=== PATIENT | male | born 2000 | race Caucasian/White ===

== ENCOUNTER 2022-02-02 01:21 | Emergency (ER) | payer OTHER ==
[2022-02-02 02:43] VITALS: BMI 25.8
[2022-02-02 06:12] VITALS: BP 118/77; PULSE 79; TEMP 98.2
== END 2022-02-02 06:57 | disposition home or self-care (01) ==
LOC: JER 01:21
DX: F10.920 Alcohol use, unspecified with intoxication, uncomplicated (principal)
CPT/HCPCS: 99281-25

== ENCOUNTER 2022-06-30 20:16 | Emergency (ER) | payer OTHER ==
[2022-06-30 20:32] VITALS: BP 131/80; PULSE 108; RESP 18; TEMP 98.6; BMI 25.1
[2022-06-30] MEDS ORDERED: clonazePAM 0.5 MG TABLET PO ONE (23:33)
[2022-06-30] MEDS ORDERED: clonazePAM 0.5 MG TABLET ONE (23:37)
== END 2022-07-01 00:01 | disposition home or self-care (01) ==
LOC: JER 20:16
DX: R05.9 Cough, unspecified (principal)
CPT/HCPCS: 71046-TC-FY; 93005; 93010; 99291

== ENCOUNTER 2022-12-04 03:54 | Inpatient (IN) | payer OTHER ==
[2022-12-04 04:42] VITALS: BMI 23.6
[2022-12-04] MEDS ORDERED: NALOXONE HCL 0.4 MG/ML VIAL IM PRN (05:15)
[2022-12-04] MEDS ORDERED: BENZONATATE 200 MG CAPSULE PO PRN (05:15)
[2022-12-04] MEDS ORDERED: IBUPROFEN 600 MG TABLET (FP) PO PRN (05:15)
[2022-12-04] MEDS ORDERED: NALOXONE HCL (KLOXXADO) 8 MG SPRAY NS PRN (05:15)
[2022-12-04] MEDS ORDERED: ONDANSETRON *ODT* 4 MG TABLET SL PRN (05:15)
[2022-12-04] MEDS ORDERED: BENZOCAINE/MENTHOL (CHLORASEPTIC ) LOZENGE MM PRN (05:15)
[2022-12-04] MEDS ORDERED: BISMUTH SUBSALICYLATE 524 MG/30 ML PO PRN (05:15)
[2022-12-04] MEDS ORDERED: guaiFENesin 600 MG TABLET.ER (FP) PO PRN (05:15)
[2022-12-04] MEDS ORDERED: ACETAMINOPHEN 325 MG TABLET (FP) PO PRN (05:15)
[2022-12-04] MEDS ORDERED: DICYCLOMINE HCL 10 MG CAPSULE PO PRN (05:15)
[2022-12-04] MEDS ORDERED: MAG HYDROX/AL HYDROX/SIMETH 30 ML UNIT-DOSE CUP PO PRN (05:15)
[2022-12-04] MEDS ORDERED: POLYETHYLENE GLYCOL (HEALTHYLAX) 3350 17 GM PACKET PO PRN (05:15)
[2022-12-04] MEDS ORDERED: IBUPROFEN 400 MG TABLET (FP) PO PRN (05:15)
[2022-12-04] MEDS ORDERED: MAGNESIUM HYDROX 2400MG/30ML ORAL SUSPENSION 30 ML CUP PO PRN (05:15)
[2022-12-04] MEDS ORDERED: LOPERAMIDE HCL 2 MG CAPSULE PO PRN (05:15)
[2022-12-04] MEDS ORDERED: NICOTINE POLACRILEX 2 MG GUM BUC PRN (05:15)
[2022-12-04] MEDS ORDERED: IBUPROFEN 400 MG TABLET (FP) PO ONE (05:37)
[2022-12-04] MEDS: METHOCARBAMOL 500 MG TABLET PO PRN ×2 (10:32→22:50)
[2022-12-04] MEDS: PRENATAL VITAMINS W/ FOLIC ACID TABLET (FP) PO SCH (10:32)
[2022-12-04] MEDS: hydrOXYzine PAMOATE 25 MG CAPSULE (FP) PO PRN ×2 (10:32→22:50)
[2022-12-04] MEDS: BACITRACIN ZINC 15 GM TUBE TOPICAL OINTMENT TP SCH (10:32)
[2022-12-04] MEDS: NICOTINE 21 MG/24 HOURS TOPICAL PATCH TD SCH (10:33)
[2022-12-04 10:50] LABS: BLOOD UREA NITROGEN 9.7 mg/dL (7-18)
[2022-12-04 10:53] LABS: CREATININE 0.9 mg/dL (0.55-1.3)
[2022-12-04 10:55] LABS: BILIRUBIN,TOTAL 0.8 mg/dL (0.2-1); TOT PROT 6.6 g/dl (6.4-8.2)
[2022-12-04 10:59] LABS: HEMOGLOBIN 13.5 GM/dL (11.7-16.9); MCH 29.7 pg (25.7-33.7); MCHC 34.7 g/dl (32.0-35.9); MEAN CELL VOLUME 85.6 fl (80-96); MEAN PLT VOLUME 10.3 fl (7.5-11.1); PLATELET COUNT 196 10^3/uL (134-434); RBC 4.56 M/mm3 (4.00-5.60); RDW 13.4 % (11.9-15.9); WHITE BLOOD COUNT 11.4 K/mm3 (4.0-10.0)
[2022-12-04] MEDS: MELATONIN 5 MG TABLETS PO SCH (22:50)
[2022-12-04] MEDS: THIAMINE HCL 100 MG TABLET (FP) PO SCH (22:50)
[2022-12-05] MEDS: BACITRACIN ZINC 15 GM TUBE TOPICAL OINTMENT TP SCH (10:05)
[2022-12-05] MEDS: PRENATAL VITAMINS W/ FOLIC ACID TABLET (FP) PO SCH (10:05)
[2022-12-05] MEDS: NICOTINE 21 MG/24 HOURS TOPICAL PATCH TD SCH (10:05)
[2022-12-05] MEDS: MELATONIN 5 MG TABLETS PO SCH (22:13)
[2022-12-05] MEDS: THIAMINE HCL 100 MG TABLET (FP) PO SCH (22:13)
[2022-12-05] MEDS: hydrOXYzine PAMOATE 25 MG CAPSULE (FP) PO PRN (22:14)
[2022-12-05] MEDS: METHOCARBAMOL 500 MG TABLET PO PRN (22:14)
[2022-12-06] MEDS: hydrOXYzine PAMOATE 25 MG CAPSULE (FP) PO PRN ×2 (10:52→22:47)
[2022-12-06] MEDS: METHOCARBAMOL 500 MG TABLET PO PRN ×2 (10:52→17:22)
[2022-12-06] MEDS: diazePAM 5 MG TABLET PO SCH ×3 (10:52→22:45)
[2022-12-06] MEDS: PRENATAL VITAMINS W/ FOLIC ACID TABLET (FP) PO SCH (10:52)
[2022-12-06] MEDS: NICOTINE 21 MG/24 HOURS TOPICAL PATCH TD SCH (10:54)
[2022-12-06] MEDS: BACITRACIN ZINC 15 GM TUBE TOPICAL OINTMENT TP SCH (11:21)
[2022-12-06] MEDS: THIAMINE HCL 100 MG TABLET (FP) PO SCH (22:45)
[2022-12-06] MEDS: MELATONIN 5 MG TABLETS PO SCH (22:47)
[2022-12-07] MEDS: diazePAM 5 MG TABLET PO SCH ×4 (05:58→22:01)
[2022-12-07] MEDS: hydrOXYzine PAMOATE 25 MG CAPSULE (FP) PO PRN ×3 (06:00→22:05)
[2022-12-07] MEDS: METHOCARBAMOL 500 MG TABLET PO PRN ×2 (06:00→13:55)
[2022-12-07] MEDS: NICOTINE 21 MG/24 HOURS TOPICAL PATCH TD SCH (11:30)
[2022-12-07] MEDS: PRENATAL VITAMINS W/ FOLIC ACID TABLET (FP) PO SCH (11:30)
[2022-12-07] MEDS: BACITRACIN 0.9 GM PACKET TP SCH (11:34)
[2022-12-07] MEDS: SERTRALINE HCL 50 MG TABLET (FP) PO SCH (15:07)
[2022-12-07] MEDS: THIAMINE HCL 100 MG TABLET (FP) PO SCH (22:01)
[2022-12-07] MEDS: SUVOREXANT 10 MG TABLET PO PRN (22:04)
[2022-12-08] MEDS: diazePAM 5 MG TABLET PO SCH ×3 (06:14→21:53)
[2022-12-08] MEDS: BACITRACIN 0.9 GM PACKET TP SCH (11:01)
[2022-12-08] MEDS: NICOTINE 21 MG/24 HOURS TOPICAL PATCH TD SCH (11:01)
[2022-12-08] MEDS: PRENATAL VITAMINS W/ FOLIC ACID TABLET (FP) PO SCH (11:01)
[2022-12-08] MEDS: SERTRALINE HCL 50 MG TABLET (FP) PO SCH (11:01)
[2022-12-08] MEDS: METHOCARBAMOL 500 MG TABLET PO PRN ×2 (13:28→21:53)
[2022-12-08] MEDS ORDERED: TRIMETHOBENZAMIDE HCL 200MG/2ML INJ IM ONE ×2 (14:23→19:56)
[2022-12-08] MEDS ORDERED: ACETAMINOPHEN 325 MG TABLET (FP) PO ONE (20:07)
[2022-12-08] MEDS: hydrOXYzine PAMOATE 25 MG CAPSULE (FP) PO PRN (21:53)
[2022-12-08] MEDS: SUVOREXANT 10 MG TABLET PO PRN (21:55)
[2022-12-08] MEDS: THIAMINE HCL 100 MG TABLET (FP) PO SCH (21:55)
[2022-12-09] MEDS: diazePAM 5 MG TABLET PO SCH ×2 (06:31→17:18)
[2022-12-09] MEDS: BACITRACIN 0.9 GM PACKET TP SCH (10:42)
[2022-12-09] MEDS: PRENATAL VITAMINS W/ FOLIC ACID TABLET (FP) PO SCH (10:42)
[2022-12-09] MEDS: NICOTINE 21 MG/24 HOURS TOPICAL PATCH TD SCH (10:42)
[2022-12-09] MEDS: SERTRALINE HCL 50 MG TABLET (FP) PO SCH (10:43)
[2022-12-09] MEDS: METHOCARBAMOL 500 MG TABLET PO PRN (17:20)
[2022-12-09] MEDS: hydrOXYzine PAMOATE 25 MG CAPSULE (FP) PO PRN (17:20)
[2022-12-09 19:03] VITALS: BP 147/75; PULSE 109; RESP 16; TEMP 97.7
[2022-12-10] MEDS ORDERED: diazePAM 5 MG TABLET PO ONE (06:00)
== END 2022-12-09 17:20 | disposition home or self-care (01) | DRG 774 ==
LOC: YASAS 03:54 → Y6N 05:38 → UNDOADMIN 05:38
PROVIDERS: ADMIT Allergy & Immunology; ATTEND Surgery
PROC: HZ2ZZZZ Detoxification Services for Substance Abuse Treatment (ICD-10-PCS; principal; 2022-12-04)
DX: F10.230 Alcohol dependence with withdrawal, uncomplicated (principal); F14.20 Cocaine dependence, uncomplicated; F17.210 Nicotine dependence, cigarettes, uncomplicated; F19.282 Other psychoactive substance dependence with psychoactive substance-induced sleep disorder; F19.280 Other psychoactive substance dependence with psychoactive substance-induced anxiety disorder; F19.24 Other psychoactive substance dependence with psychoactive substance-induced mood disorder; F41.9 Anxiety disorder, unspecified; R03.0 Elevated blood-pressure reading, without diagnosis of hypertension; R63.8 Other symptoms and signs concerning food and fluid intake; Z62.810 Personal history of physical and sexual abuse in childhood
CPT/HCPCS: 36415; 80053; 85027; 86780; C9803-CS; Q0162; U0003; U0005

== ENCOUNTER 2022-12-18 16:44 | Emergency (ER) | payer OTHER ==
[2022-12-18 16:58] VITALS: BP 120/73; PULSE 95; RESP 18; TEMP 97.5; BMI 23.6
== END 2022-12-18 20:07 | disposition home or self-care (01) ==
LOC: JER 16:44
DX: F19.10 Other psychoactive substance abuse, uncomplicated (principal)
CPT/HCPCS: 99282-25

== ENCOUNTER 2022-12-20 09:50 | Inpatient (IN) | payer OTHER ==
[2022-12-20 10:09] VITALS: BMI 23.6
[2022-12-20] MEDS ORDERED: BENZONATATE 200 MG CAPSULE PO PRN (10:49)
[2022-12-20] MEDS ORDERED: MAG HYDROX/AL HYDROX/SIMETH 30 ML UNIT-DOSE CUP PO PRN (10:49)
[2022-12-20] MEDS ORDERED: IBUPROFEN 400 MG TABLET (FP) PO PRN (10:49)
[2022-12-20] MEDS ORDERED: LOPERAMIDE HCL 2 MG CAPSULE PO PRN (10:49)
[2022-12-20] MEDS ORDERED: ACETAMINOPHEN 325 MG TABLET (FP) PO PRN (10:49)
[2022-12-20] MEDS ORDERED: POLYETHYLENE GLYCOL (HEALTHYLAX) 3350 17 GM PACKET PO PRN (10:49)
[2022-12-20] MEDS ORDERED: MAGNESIUM HYDROX 2400MG/30ML ORAL SUSPENSION 30 ML CUP PO PRN (10:49)
[2022-12-20] MEDS ORDERED: BENZOCAINE/MENTHOL (CHLORASEPTIC ) LOZENGE MM PRN (10:49)
[2022-12-20] MEDS ORDERED: BISMUTH SUBSALICYLATE 262 MG/15 ML BTL PO PRN (10:49)
[2022-12-20] MEDS ORDERED: hydrOXYzine PAMOATE 25 MG CAPSULE (FP) PO PRN (10:49)
[2022-12-20] MEDS ORDERED: ONDANSETRON *ODT* 4 MG TABLET SL PRN (10:49)
[2022-12-20] MEDS ORDERED: NICOTINE 21 MG/24 HOURS TOPICAL PATCH TD PRN (10:49)
[2022-12-20] MEDS ORDERED: NICOTINE POLACRILEX 4 MG GUM BUC PRN (10:49)
[2022-12-20] MEDS ORDERED: NICOTINE 10 MG CARTRIDGE (INHALER) IH PRN (10:49)
[2022-12-20] MEDS ORDERED: DICYCLOMINE HCL 10 MG CAPSULE PO PRN (10:49)
[2022-12-20] MEDS ORDERED: guaiFENesin 600 MG TABLET.ER (FP) PO PRN (10:49)
[2022-12-20] MEDS: METHOCARBAMOL 500 MG TABLET PO PRN ×2 (14:00→22:32)
[2022-12-20] MEDS: IBUPROFEN 600 MG TABLET (FP) PO PRN (14:00)
[2022-12-20 14:59] LABS: HEMATOCRIT 38.9 % (35.4-49); MCH 29.2 pg (25.7-33.7); MCHC 33.5 g/dl (32.0-35.9); MEAN CELL VOLUME 87.2 fl (80-96); MEAN PLT VOLUME 10.1 fl (7.5-11.1); PLATELET COUNT 220 10^3/uL (134-434); RBC 4.46 M/mm3 (4.00-5.60); RDW 13.8 % (11.9-15.9); WHITE BLOOD COUNT 9.2 K/mm3 (4.0-10.0)
[2022-12-20 15:05] LABS: CALCIUM 8.7 mg/dL (8.5-10.1)
[2022-12-20 15:06] LABS: ALBUMIN 3.3 g/dl (3.4-5.0); BLOOD UREA NITROGEN 12.7 mg/dL (7-18)
[2022-12-20 15:09] LABS: CREATININE 0.8 mg/dL (0.55-1.3)
[2022-12-20 15:10] LABS: BILIRUBIN,TOTAL 0.4 mg/dL (0.2-1)
[2022-12-20] MEDS ORDERED: THIAMINE HCL 100 MG TABLET (FP) PO SCH (22:00)
[2022-12-20] MEDS ORDERED: MELATONIN 5 MG TABLETS PO SCH (22:00)
[2022-12-21 05:57] VITALS: BP 104/53; PULSE 66; RESP 16; TEMP 96.8
[2022-12-21] MEDS ORDERED: hydrOXYzine PAMOATE 25 MG CAPSULE (FP) PO PRN (09:33)
[2022-12-21] MEDS ORDERED: PRENATAL VITAMINS W/ FOLIC ACID TABLET (FP) PO SCH (10:00)
[2022-12-21] MEDS: METHOCARBAMOL 500 MG TABLET PO PRN (10:17)
[2022-12-21] MEDS: IBUPROFEN 600 MG TABLET (FP) PO PRN (10:18)
[2022-12-21] MEDS ORDERED: SUVOREXANT 10 MG TABLET PO PRN (22:00)
== END 2022-12-21 12:12 | disposition other institution (70) | DRG 774 ==
LOC: YASAS 09:50 → Y6N 11:03
PROVIDERS: ADMIT Allergy & Immunology; ATTEND Surgery
PROC: HZ2ZZZZ Detoxification Services for Substance Abuse Treatment (ICD-10-PCS; principal; 2022-12-20)
DX: F14.20 Cocaine dependence, uncomplicated (principal); F15.20 Other stimulant dependence, uncomplicated; F16.20 Hallucinogen dependence, uncomplicated; F12.20 Cannabis dependence, uncomplicated; F17.213 Nicotine dependence, cigarettes, with withdrawal; F19.280 Other psychoactive substance dependence with psychoactive substance-induced anxiety disorder; F19.282 Other psychoactive substance dependence with psychoactive substance-induced sleep disorder; F19.24 Other psychoactive substance dependence with psychoactive substance-induced mood disorder; F41.9 Anxiety disorder, unspecified; F41.1 Generalized anxiety disorder; Z62.810 Personal history of physical and sexual abuse in childhood; Z88.0 Allergy status to penicillin
CPT/HCPCS: 36415; 80053; 85027; 86780; C9803-CS; U0003; U0005

== ENCOUNTER 2022-12-21 12:21 | Inpatient (IN) | payer OTHER ==
[2022-12-21] MEDS ORDERED: ACETAMINOPHEN 325 MG TABLET (FP) PO PRN (13:30)
[2022-12-21] MEDS ORDERED: LOPERAMIDE HCL 2 MG CAPSULE PO PRN (13:30)
[2022-12-21] MEDS ORDERED: IBUPROFEN 600 MG TABLET (FP) PO PRN (13:30)
[2022-12-21] MEDS ORDERED: NALOXONE HCL (KLOXXADO) 8 MG SPRAY NS PRN (13:30)
[2022-12-21] MEDS ORDERED: hydrOXYzine PAMOATE 25 MG CAPSULE (FP) PO PRN (13:30)
[2022-12-21] MEDS ORDERED: NICOTINE 10 MG CARTRIDGE (INHALER) IH PRN (13:30)
[2022-12-21] MEDS ORDERED: NALOXONE HCL 0.4 MG/ML VIAL IVPUSH PRN (13:30)
[2022-12-21] MEDS ORDERED: BENZONATATE 200 MG CAPSULE PO PRN (13:30)
[2022-12-21] MEDS ORDERED: IBUPROFEN 400 MG TABLET (FP) PO PRN (13:30)
[2022-12-21] MEDS ORDERED: MAGNESIUM HYDROX 2400MG/30ML ORAL SUSPENSION 30 ML CUP PO PRN (13:30)
[2022-12-21] MEDS ORDERED: POLYETHYLENE GLYCOL (HEALTHYLAX) 3350 17 GM PACKET PO PRN (13:30)
[2022-12-21] MEDS ORDERED: guaiFENesin 600 MG TABLET.ER (FP) PO PRN (13:30)
[2022-12-21] MEDS ORDERED: MAG HYDROX/AL HYDROX/SIMETH 30 ML UNIT-DOSE CUP PO PRN (13:30)
[2022-12-21] MEDS ORDERED: BENZOCAINE/MENTHOL (CHLORASEPTIC ) LOZENGE MM PRN (13:30)
[2022-12-21] MEDS: METHOCARBAMOL 500 MG TABLET PO PRN (21:39)
[2022-12-21] MEDS: THIAMINE HCL 100 MG TABLET (FP) PO SCH (21:39)
[2022-12-21] MEDS: hydrOXYzine PAMOATE 25 MG CAPSULE (FP) PO PRN (21:39)
[2022-12-21] MEDS ORDERED: SUVOREXANT 10 MG TABLET PO PRN (22:00)
[2022-12-21] MEDS ORDERED: MELATONIN 5 MG TABLETS PO SCH (22:00)
[2022-12-22] MEDS: PRENATAL VITAMINS W/ FOLIC ACID TABLET (FP) PO SCH (09:33)
[2022-12-22] MEDS: NICOTINE 21 MG/24 HOURS TOPICAL PATCH TD SCH (09:33)
[2022-12-22] MEDS: METHOCARBAMOL 500 MG TABLET PO PRN ×2 (13:58→21:23)
[2022-12-22] MEDS: hydrOXYzine PAMOATE 25 MG CAPSULE (FP) PO PRN ×2 (13:58→21:23)
[2022-12-22] MEDS ORDERED: QUEtiapine FUMARATE 25 MG TABLET PO ONE (14:30)
[2022-12-22] MEDS ORDERED: MELATONIN 5 MG TABLETS PO PRN (17:11)
[2022-12-22] MEDS: MELATONIN 5 MG TABLETS PO PRN (21:22)
[2022-12-22] MEDS: THIAMINE HCL 100 MG TABLET (FP) PO SCH (21:22)
[2022-12-22] MEDS ORDERED: QUEtiapine FUMARATE 50 MG TABLET PO PRN (22:00)
[2022-12-23 07:45] VITALS: TEMP 97.9
[2022-12-23] MEDS: NICOTINE 21 MG/24 HOURS TOPICAL PATCH TD SCH (10:55)
[2022-12-23] MEDS: PRENATAL VITAMINS W/ FOLIC ACID TABLET (FP) PO SCH (10:55)
[2022-12-23] MEDS: METHOCARBAMOL 500 MG TABLET PO PRN ×2 (13:01→21:24)
[2022-12-23] MEDS: hydrOXYzine PAMOATE 25 MG CAPSULE (FP) PO PRN (13:01)
[2022-12-23] MEDS ORDERED: hydrOXYzine PAMOATE 50 MG CAPSULE (FP) PO PRN (16:24)
[2022-12-23] MEDS ORDERED: QUEtiapine FUMARATE 25 MG TABLET PO ONE (16:27)
[2022-12-23] MEDS: hydrOXYzine PAMOATE 50 MG CAPSULE (FP) PO PRN (17:05)
[2022-12-23] MEDS: THIAMINE HCL 100 MG TABLET (FP) PO SCH (21:23)
[2022-12-23] MEDS: MELATONIN 5 MG TABLETS PO PRN (21:23)
[2022-12-23] MEDS: busPIRone HCL 10 MG TABLET (FP) PO SCH (21:24)
[2022-12-23] MEDS ORDERED: QUEtiapine FUMARATE 100 MG TABLET (FP) PO PRN (22:00)
[2022-12-24] MEDS: busPIRone HCL 10 MG TABLET (FP) PO SCH (06:40)
[2022-12-24 07:01] VITALS: BP 118/66; PULSE 75; RESP 17
[2022-12-24] MEDS: PRENATAL VITAMINS W/ FOLIC ACID TABLET (FP) PO SCH (09:24)
[2022-12-24] MEDS: NICOTINE 21 MG/24 HOURS TOPICAL PATCH TD SCH (09:24)
[2022-12-24] MEDS: hydrOXYzine PAMOATE 50 MG CAPSULE (FP) PO PRN (09:26)
[2022-12-24] MEDS: METHOCARBAMOL 500 MG TABLET PO PRN (09:26)
[2022-12-24] MEDS ORDERED: QUEtiapine FUMARATE 25 MG TABLET PO SCH (10:00)
== END 2022-12-24 10:18 | disposition left against medical advice (07) | DRG 770 ==
LOC: YASAS 12:21 → Y3E 12:22
PROVIDERS: ADMIT Allergy & Immunology; ATTEND Psychiatry & Neurology Pain Medicine
PROC: HZ42ZZZ Group Counseling for Substance Abuse Treatment, Cognitive-Behavioral (ICD-10-PCS; principal; 2022-12-21)
DX: F10.20 Alcohol dependence, uncomplicated (principal); F13.20 Sedative, hypnotic or anxiolytic dependence, uncomplicated; F14.20 Cocaine dependence, uncomplicated; F12.20 Cannabis dependence, uncomplicated; F17.210 Nicotine dependence, cigarettes, uncomplicated; F19.282 Other psychoactive substance dependence with psychoactive substance-induced sleep disorder; F19.280 Other psychoactive substance dependence with psychoactive substance-induced anxiety disorder; F19.24 Other psychoactive substance dependence with psychoactive substance-induced mood disorder; F41.9 Anxiety disorder, unspecified; Z91.199 Patient's noncompliance with other medical treatment and regimen due to unspecified reason; Z88.0 Allergy status to penicillin
CPT/HCPCS: 36415; 86803

== ENCOUNTER 2023-01-28 01:43 | Inpatient (IN) | payer OTHER ==
[2023-01-28] MEDS ORDERED: POLYETHYLENE GLYCOL (HEALTHYLAX) 3350 17 GM PACKET PO PRN (02:11)
[2023-01-28] MEDS ORDERED: IBUPROFEN 400 MG TABLET (FP) PO PRN (02:11)
[2023-01-28] MEDS ORDERED: NALOXONE HCL 0.4 MG/ML VIAL IM PRN (02:11)
[2023-01-28] MEDS ORDERED: MAG HYDROX/AL HYDROX/SIMETH 30 ML UNIT-DOSE CUP PO PRN (02:11)
[2023-01-28] MEDS ORDERED: NALOXONE HCL (KLOXXADO) 8 MG SPRAY NS PRN (02:11)
[2023-01-28] MEDS ORDERED: BISMUTH SUBSALICYLATE 524 MG/30 ML PO PRN (02:11)
[2023-01-28] MEDS ORDERED: MAGNESIUM HYDROX 2400MG/30ML ORAL SUSPENSION 30 ML CUP PO PRN (02:11)
[2023-01-28] MEDS ORDERED: BENZOCAINE/MENTHOL (CHLORASEPTIC ) LOZENGE MM PRN (02:11)
[2023-01-28] MEDS ORDERED: IBUPROFEN 600 MG TABLET (FP) PO PRN (02:11)
[2023-01-28] MEDS ORDERED: hydrOXYzine PAMOATE 25 MG CAPSULE (FP) PO PRN (02:11)
[2023-01-28] MEDS ORDERED: BENZONATATE 200 MG CAPSULE PO PRN (02:11)
[2023-01-28] MEDS ORDERED: NICOTINE POLACRILEX 2 MG GUM BUC PRN (02:11)
[2023-01-28] MEDS ORDERED: ACETAMINOPHEN 325 MG TABLET (FP) PO PRN (02:11)
[2023-01-28] MEDS ORDERED: LOPERAMIDE HCL 2 MG CAPSULE PO PRN (02:11)
[2023-01-28] MEDS ORDERED: DICYCLOMINE HCL 10 MG CAPSULE PO PRN (02:11)
[2023-01-28] MEDS ORDERED: guaiFENesin 600 MG TABLET.ER (FP) PO PRN (02:11)
[2023-01-28] MEDS ORDERED: ONDANSETRON *ODT* 4 MG TABLET SL PRN (02:11)
[2023-01-28] MEDS ORDERED: METHOCARBAMOL 500 MG TABLET PO PRN (02:11)
[2023-01-28] MEDS ORDERED: hydrOXYzine PAMOATE 50 MG CAPSULE (FP) PO ONE (02:27)
[2023-01-28 02:28] VITALS: BMI 27.3
[2023-01-28 08:48] VITALS: RESP 18
[2023-01-28] MEDS: PRENATAL VITAMINS W/ FOLIC ACID TABLET (FP) PO SCH (10:37)
[2023-01-28] MEDS: NICOTINE 21 MG/24 HOURS TOPICAL PATCH TD SCH (10:37)
[2023-01-28] MEDS ORDERED: QUEtiapine FUMARATE 25 MG TABLET PO STA (15:28)
[2023-01-28] MEDS ORDERED: THIAMINE HCL 100 MG TABLET (FP) PO SCH (22:00)
[2023-01-28] MEDS ORDERED: MELATONIN 5 MG TABLETS PO SCH (22:00)
[2023-01-28] MEDS ORDERED: QUEtiapine FUMARATE 100 MG TABLET (FP) PO SCH (22:00)
[2023-01-29 09:59] VITALS: BP 120/64; PULSE 65; TEMP 97.1
[2023-01-29] MEDS: NICOTINE 21 MG/24 HOURS TOPICAL PATCH TD SCH (11:00)
[2023-01-29] MEDS: PRENATAL VITAMINS W/ FOLIC ACID TABLET (FP) PO SCH (11:01)
== END 2023-01-29 11:26 | disposition other institution (70) | DRG 774 ==
LOC: YASAS 01:43 → Y3N 02:59 → UNDOADMIN 02:59 → UNDODISIN 01-29 11:26
PROVIDERS: ADMIT Allergy & Immunology; ATTEND Surgery
PROC: HZ2ZZZZ Detoxification Services for Substance Abuse Treatment (ICD-10-PCS; principal; 2023-01-28)
DX: F10.20 Alcohol dependence, uncomplicated (principal); F14.20 Cocaine dependence, uncomplicated; F12.20 Cannabis dependence, uncomplicated; F17.210 Nicotine dependence, cigarettes, uncomplicated; F19.282 Other psychoactive substance dependence with psychoactive substance-induced sleep disorder; F19.24 Other psychoactive substance dependence with psychoactive substance-induced mood disorder; Z88.0 Allergy status to penicillin
CPT/HCPCS: C9803-CS; U0003; U0005

== ENCOUNTER 2023-07-20 16:46 | Inpatient (IN) | payer OTHER ==
[2023-07-20 18:02] VITALS: BMI 33.0
[2023-07-20] MEDS ORDERED: IBUPROFEN 600 MG TABLET (FP) PO PRN (19:34)
[2023-07-20] MEDS ORDERED: guaiFENesin 600 MG TABLET.ER (FP) PO PRN (19:34)
[2023-07-20] MEDS ORDERED: LOPERAMIDE HCL 2 MG CAPSULE PO PRN (19:34)
[2023-07-20] MEDS ORDERED: MAG HYDROX/AL HYDROX/SIMETH 30 ML UNIT-DOSE CUP PO PRN (19:34)
[2023-07-20] MEDS ORDERED: NALOXONE HCL (KLOXXADO) 8 MG SPRAY NS PRN (19:34)
[2023-07-20] MEDS ORDERED: BENZONATATE 200 MG CAPSULE PO PRN (19:34)
[2023-07-20] MEDS ORDERED: BENZOCAINE/MENTHOL (CHLORASEPTIC ) LOZENGE MM PRN (19:34)
[2023-07-20] MEDS ORDERED: MAGNESIUM HYDROX 2400MG/30ML ORAL SUSPENSION 30 ML CUP PO PRN (19:34)
[2023-07-20] MEDS ORDERED: POLYETHYLENE GLYCOL (HEALTHYLAX) 3350 17 GM PACKET PO PRN (19:34)
[2023-07-20] MEDS ORDERED: NALOXONE HCL 0.4 MG/ML VIAL IM PRN (19:34)
[2023-07-20] MEDS ORDERED: IBUPROFEN 400 MG TABLET (FP) PO PRN (19:34)
[2023-07-21] MEDS: MELATONIN 5 MG TABLETS PO SCH ×2 (00:52→21:21)
[2023-07-21] MEDS: hydrOXYzine PAMOATE 25 MG CAPSULE (FP) PO PRN (00:52)
[2023-07-21] MEDS: THIAMINE HCL 100 MG TABLET (FP) PO SCH ×2 (00:52→21:21)
[2023-07-21] MEDS ORDERED: QUEtiapine FUMARATE 50 MG TABLET PO ONE (06:45)
[2023-07-21] MEDS: PRENATAL VITAMINS W/ FOLIC ACID TABLET (FP) PO SCH (10:16)
[2023-07-21] MEDS: NICOTINE 21 MG/24 HOURS TOPICAL PATCH TD SCH ×2 (10:16→10:18)
[2023-07-21 10:23] LABS: HEMATOCRIT 46.9 % (35.4-49); HEMOGLOBIN 15.6 GM/dL (11.7-16.9); MCH 28.9 pg (25.7-33.7); MCHC 33.2 g/dl (32.0-35.9); PLATELET COUNT 218 10^3/uL (134-434); WHITE BLOOD COUNT 8.8 K/mm3 (4.0-10.0)
[2023-07-21 10:27] LABS: CHLORIDE 102 mmol/L (98-107); POTASSIUM 3.9 mmol/L (3.5-5.1); SODIUM 137 mmol/L (136-145)
[2023-07-21 10:35] LABS: SGOT/AST 14 U/L (15-37)
[2023-07-21 10:37] LABS: CREATININE 0.9 mg/dL (0.55-1.3); TOT PROT 7.1 g/dl (6.4-8.2)
[2023-07-21 11:14] LABS: ALBUMIN 4.1 g/dl (3.4-5.0); ALK PHOS 73 U/L (45-117); ANION GAP 4 mmol/L (4-13); BILIRUBIN,TOTAL 0.9 mg/dL (0.2-1); BLOOD UREA NITROGEN 13.7 mg/dL (7-18); CALCIUM 9.1 mg/dL (8.5-10.1); CO2 31 mmol/L (21-32); GLUCOSE,RANDOM 95 mg/dL (74-106); SGPT/ALT 37 U/L (13-61)
[2023-07-21] MEDS: ACETAMINOPHEN 325 MG TABLET (FP) PO PRN (11:51)
[2023-07-21 14:15] LABS: URINE APPEARANCE CLEAR; URINE BILIRUBIN NEGATIVE (NEGATIVE); URINE COLOR DK YELLOW; URINE GLUCOSE (UA) NEGATIVE (NEGATIVE); URINE KETONE NEGATIVE (NEGATIVE); URINE LEUK ESTERASE NEGATIVE (NEGATIVE); URINE NITRITE NEGATIVE (NEGATIVE); URINE PROTEIN NEGATIVE (NEGATIVE)
[2023-07-21] MEDS: traZODone HCL 50 MG TABLET (FP) PO SCH (21:21)
[2023-07-21] MEDS: QUEtiapine FUMARATE 100 MG TABLET (FP) PO SCH (21:21)
[2023-07-21] MEDS: busPIRone HCL 5 MG TABLET PO SCH (23:35)
[2023-07-22] MEDS: QUEtiapine FUMARATE 100 MG TABLET (FP) PO SCH ×2 (10:36→21:10)
[2023-07-22] MEDS: PRENATAL VITAMINS W/ FOLIC ACID TABLET (FP) PO SCH (10:36)
[2023-07-22] MEDS: busPIRone HCL 5 MG TABLET PO SCH ×2 (10:36→21:10)
[2023-07-22] MEDS: NICOTINE 21 MG/24 HOURS TOPICAL PATCH TD SCH (10:37)
[2023-07-22] MEDS: NICOTINE POLACRILEX 4 MG GUM BUC PRN (10:39)
[2023-07-22] MEDS ORDERED: TUBERCULIN PPD 5 TU/0.1ML VIAL ID ONE (14:21)
[2023-07-22] MEDS: traZODone HCL 50 MG TABLET (FP) PO SCH (21:10)
[2023-07-22] MEDS: THIAMINE HCL 100 MG TABLET (FP) PO SCH (21:10)
[2023-07-22] MEDS: MELATONIN 5 MG TABLETS PO SCH (21:10)
[2023-07-23] MEDS: PRENATAL VITAMINS W/ FOLIC ACID TABLET (FP) PO SCH (09:56)
[2023-07-23] MEDS: NICOTINE 21 MG/24 HOURS TOPICAL PATCH TD SCH (09:56)
[2023-07-23] MEDS: QUEtiapine FUMARATE 100 MG TABLET (FP) PO SCH ×2 (09:56→21:22)
[2023-07-23] MEDS: busPIRone HCL 5 MG TABLET PO SCH ×2 (11:22→21:22)
[2023-07-23] MEDS: traZODone HCL 50 MG TABLET (FP) PO SCH (21:22)
[2023-07-23] MEDS: MELATONIN 5 MG TABLETS PO SCH (21:22)
[2023-07-23] MEDS: THIAMINE HCL 100 MG TABLET (FP) PO SCH (21:22)
[2023-07-23] MEDS: ACETAMINOPHEN 325 MG TABLET (FP) PO PRN (21:22)
[2023-07-24] MEDS: QUEtiapine FUMARATE 100 MG TABLET (FP) PO SCH ×2 (09:57→21:07)
[2023-07-24] MEDS: NICOTINE 21 MG/24 HOURS TOPICAL PATCH TD SCH (09:57)
[2023-07-24] MEDS: busPIRone HCL 5 MG TABLET PO SCH ×2 (09:57→21:07)
[2023-07-24] MEDS: NICOTINE POLACRILEX 4 MG GUM BUC PRN (09:59)
[2023-07-24] MEDS: PRENATAL VITAMINS W/ FOLIC ACID TABLET (FP) PO SCH (10:14)
[2023-07-24] MEDS: THIAMINE HCL 100 MG TABLET (FP) PO SCH (21:07)
[2023-07-24] MEDS: MELATONIN 5 MG TABLETS PO SCH (21:07)
[2023-07-24] MEDS: traZODone HCL 50 MG TABLET (FP) PO SCH (21:07)
[2023-07-25] MEDS: PRENATAL VITAMINS W/ FOLIC ACID TABLET (FP) PO SCH (09:51)
[2023-07-25] MEDS: QUEtiapine FUMARATE 100 MG TABLET (FP) PO SCH ×2 (09:51→21:14)
[2023-07-25] MEDS: busPIRone HCL 5 MG TABLET PO SCH ×2 (09:51→21:14)
[2023-07-25] MEDS: NICOTINE 21 MG/24 HOURS TOPICAL PATCH TD SCH (09:52)
[2023-07-25] MEDS: NICOTINE POLACRILEX 4 MG GUM BUC PRN (09:53)
[2023-07-25] MEDS: THIAMINE HCL 100 MG TABLET (FP) PO SCH (21:14)
[2023-07-25] MEDS: MELATONIN 5 MG TABLETS PO SCH (21:14)
[2023-07-25] MEDS: traZODone HCL 50 MG TABLET (FP) PO SCH (21:14)
[2023-07-26] MEDS: NICOTINE 21 MG/24 HOURS TOPICAL PATCH TD SCH (09:22)
[2023-07-26] MEDS: PRENATAL VITAMINS W/ FOLIC ACID TABLET (FP) PO SCH (09:22)
[2023-07-26] MEDS: busPIRone HCL 5 MG TABLET PO SCH ×2 (09:22→21:19)
[2023-07-26] MEDS: QUEtiapine FUMARATE 100 MG TABLET (FP) PO SCH ×2 (09:22→21:19)
[2023-07-26] MEDS: COLLOIDAL OATMEAL 1 BAR EACH TP PRN (10:24)
[2023-07-26] MEDS: NICOTINE POLACRILEX 4 MG GUM BUC PRN (14:58)
[2023-07-26] MEDS: THIAMINE HCL 100 MG TABLET (FP) PO SCH (21:18)
[2023-07-26] MEDS: MELATONIN 5 MG TABLETS PO SCH (21:18)
[2023-07-26] MEDS: traZODone HCL 50 MG TABLET (FP) PO SCH (21:19)
[2023-07-27] MEDS: QUEtiapine FUMARATE 100 MG TABLET (FP) PO SCH ×2 (09:58→21:13)
[2023-07-27] MEDS: busPIRone HCL 5 MG TABLET PO SCH ×2 (09:58→21:13)
[2023-07-27] MEDS: NICOTINE 21 MG/24 HOURS TOPICAL PATCH TD SCH (09:58)
[2023-07-27] MEDS: PRENATAL VITAMINS W/ FOLIC ACID TABLET (FP) PO SCH (09:58)
[2023-07-27] MEDS: MELATONIN 5 MG TABLETS PO SCH (21:13)
[2023-07-27] MEDS: THIAMINE HCL 100 MG TABLET (FP) PO SCH (21:13)
[2023-07-27] MEDS: traZODone HCL 50 MG TABLET (FP) PO SCH (21:13)
[2023-07-28] MEDS: QUEtiapine FUMARATE 100 MG TABLET (FP) PO SCH ×2 (09:31→21:14)
[2023-07-28] MEDS: busPIRone HCL 5 MG TABLET PO SCH ×2 (09:31→21:14)
[2023-07-28] MEDS: PRENATAL VITAMINS W/ FOLIC ACID TABLET (FP) PO SCH (09:31)
[2023-07-28] MEDS: NICOTINE 21 MG/24 HOURS TOPICAL PATCH TD SCH (09:31)
[2023-07-28] MEDS: traZODone HCL 50 MG TABLET (FP) PO SCH (21:14)
[2023-07-28] MEDS: MELATONIN 5 MG TABLETS PO SCH (21:14)
[2023-07-28] MEDS: THIAMINE HCL 100 MG TABLET (FP) PO SCH (21:14)
[2023-07-29] MEDS: QUEtiapine FUMARATE 100 MG TABLET (FP) PO SCH (10:24)
[2023-07-29] MEDS: PRENATAL VITAMINS W/ FOLIC ACID TABLET (FP) PO SCH (10:24)
[2023-07-29] MEDS: busPIRone HCL 5 MG TABLET PO SCH ×2 (10:24→21:03)
[2023-07-29] MEDS: NICOTINE 21 MG/24 HOURS TOPICAL PATCH TD SCH (10:25)
[2023-07-29] MEDS: QUEtiapine FUMARATE 200 MG TABLET PO SCH (21:02)
[2023-07-29] MEDS: SUVOREXANT 10 MG TABLET PO PRN (21:02)
[2023-07-29] MEDS: THIAMINE HCL 100 MG TABLET (FP) PO SCH (21:03)
[2023-07-29] MEDS: PRAZOSIN HCL 1 MG CAPSULE PO SCH (21:03)
[2023-07-30] MEDS: NICOTINE 21 MG/24 HOURS TOPICAL PATCH TD SCH (10:13)
[2023-07-30] MEDS: PRENATAL VITAMINS W/ FOLIC ACID TABLET (FP) PO SCH (10:13)
[2023-07-30] MEDS: QUEtiapine FUMARATE 100 MG TABLET (FP) PO SCH (10:14)
[2023-07-30] MEDS: busPIRone HCL 5 MG TABLET PO SCH ×2 (10:14→21:27)
[2023-07-30] MEDS: PRAZOSIN HCL 1 MG CAPSULE PO SCH (21:27)
[2023-07-30] MEDS: QUEtiapine FUMARATE 200 MG TABLET PO SCH (21:27)
[2023-07-30] MEDS: THIAMINE HCL 100 MG TABLET (FP) PO SCH (21:27)
[2023-07-30] MEDS: SUVOREXANT 10 MG TABLET PO PRN (21:29)
[2023-07-31] MEDS: busPIRone HCL 5 MG TABLET PO SCH ×2 (10:02→21:04)
[2023-07-31] MEDS: PRENATAL VITAMINS W/ FOLIC ACID TABLET (FP) PO SCH (10:02)
[2023-07-31] MEDS: QUEtiapine FUMARATE 100 MG TABLET (FP) PO SCH (10:02)
[2023-07-31] MEDS: NICOTINE 21 MG/24 HOURS TOPICAL PATCH TD SCH (10:02)
[2023-07-31] MEDS: NICOTINE POLACRILEX 4 MG GUM BUC PRN ×2 (18:34→21:05)
[2023-07-31] MEDS: QUEtiapine FUMARATE 200 MG TABLET PO SCH (21:04)
[2023-07-31] MEDS: PRAZOSIN HCL 1 MG CAPSULE PO SCH (21:05)
[2023-07-31] MEDS: THIAMINE HCL 100 MG TABLET (FP) PO SCH (21:05)
[2023-07-31] MEDS: SUVOREXANT 10 MG TABLET PO PRN (21:05)
[2023-08-01] MEDS: busPIRone HCL 5 MG TABLET PO SCH ×2 (10:02→21:05)
[2023-08-01] MEDS: PRENATAL VITAMINS W/ FOLIC ACID TABLET (FP) PO SCH (10:02)
[2023-08-01] MEDS: NICOTINE 21 MG/24 HOURS TOPICAL PATCH TD SCH (10:02)
[2023-08-01] MEDS: QUEtiapine FUMARATE 100 MG TABLET (FP) PO SCH (10:02)
[2023-08-01] MEDS: THIAMINE HCL 100 MG TABLET (FP) PO SCH (21:05)
[2023-08-01] MEDS: PRAZOSIN HCL 1 MG CAPSULE PO SCH (21:05)
[2023-08-01] MEDS: QUEtiapine FUMARATE 200 MG TABLET PO SCH (21:05)
[2023-08-01] MEDS: SUVOREXANT 10 MG TABLET PO PRN (21:06)
[2023-08-01] MEDS: NICOTINE POLACRILEX 4 MG GUM BUC PRN (21:07)
[2023-08-02] MEDS: PRENATAL VITAMINS W/ FOLIC ACID TABLET (FP) PO SCH (10:49)
[2023-08-02] MEDS: busPIRone HCL 5 MG TABLET PO SCH ×2 (10:49→21:29)
[2023-08-02] MEDS: NICOTINE 21 MG/24 HOURS TOPICAL PATCH TD SCH (10:49)
[2023-08-02] MEDS: QUEtiapine FUMARATE 100 MG TABLET (FP) PO SCH (10:50)
[2023-08-02] MEDS ORDERED: QUEtiapine FUMARATE 100 MG TABLET (FP) PO ONE (12:26)
[2023-08-02] MEDS ORDERED: busPIRone HCL 5 MG TABLET PO ONE (12:27)
[2023-08-02] MEDS: NICOTINE POLACRILEX 4 MG GUM BUC PRN ×4 (12:36→21:30)
[2023-08-02] MEDS: SUVOREXANT 15 MG TABLET PO PRN (21:29)
[2023-08-02] MEDS: THIAMINE HCL 100 MG TABLET (FP) PO SCH (21:29)
[2023-08-02] MEDS: PRAZOSIN HCL 1 MG CAPSULE PO SCH (21:29)
[2023-08-02] MEDS: QUEtiapine FUMARATE 200 MG TABLET PO SCH (21:30)
[2023-08-02] MEDS: hydrOXYzine PAMOATE 25 MG CAPSULE (FP) PO PRN (23:53)
[2023-08-03] MEDS: busPIRone HCL 5 MG TABLET PO SCH ×2 (10:16→21:08)
[2023-08-03] MEDS: QUEtiapine FUMARATE 100 MG TABLET (FP) PO SCH (10:16)
[2023-08-03] MEDS: HYDROCORTISONE 0.5% TOPICAL CREAM 30 GM TUBE TP PRN (10:17)
[2023-08-03] MEDS: PRENATAL VITAMINS W/ FOLIC ACID TABLET (FP) PO SCH (10:17)
[2023-08-03] MEDS: NICOTINE 21 MG/24 HOURS TOPICAL PATCH TD SCH (10:17)
[2023-08-03] MEDS: hydrOXYzine PAMOATE 25 MG CAPSULE (FP) PO PRN (10:18)
[2023-08-03] MEDS: SUVOREXANT 15 MG TABLET PO PRN (21:08)
[2023-08-03] MEDS: PRAZOSIN HCL 1 MG CAPSULE PO SCH (21:08)
[2023-08-03] MEDS: THIAMINE HCL 100 MG TABLET (FP) PO SCH (21:08)
[2023-08-03] MEDS: QUEtiapine FUMARATE 200 MG TABLET PO SCH (21:08)
[2023-08-03] MEDS: NICOTINE POLACRILEX 4 MG GUM BUC PRN (21:09)
[2023-08-04] MEDS: QUEtiapine FUMARATE 100 MG TABLET (FP) PO SCH (10:23)
[2023-08-04] MEDS: NICOTINE 21 MG/24 HOURS TOPICAL PATCH TD SCH (10:23)
[2023-08-04] MEDS: PRENATAL VITAMINS W/ FOLIC ACID TABLET (FP) PO SCH (10:23)
[2023-08-04] MEDS: NICOTINE POLACRILEX 4 MG GUM BUC PRN ×4 (10:24→21:21)
[2023-08-04] MEDS: busPIRone HCL 5 MG TABLET PO SCH ×2 (10:51→21:20)
[2023-08-04] MEDS: PRAZOSIN HCL 1 MG CAPSULE PO SCH (21:20)
[2023-08-04] MEDS: THIAMINE HCL 100 MG TABLET (FP) PO SCH (21:20)
[2023-08-04] MEDS: SUVOREXANT 15 MG TABLET PO PRN (21:20)
[2023-08-04] MEDS: QUEtiapine FUMARATE 200 MG TABLET PO SCH (21:20)
[2023-08-05] MEDS: PRENATAL VITAMINS W/ FOLIC ACID TABLET (FP) PO SCH (10:06)
[2023-08-05] MEDS: QUEtiapine FUMARATE 100 MG TABLET (FP) PO SCH (10:07)
[2023-08-05] MEDS: busPIRone HCL 5 MG TABLET PO SCH ×2 (10:07→21:07)
[2023-08-05] MEDS: NICOTINE 21 MG/24 HOURS TOPICAL PATCH TD SCH (10:07)
[2023-08-05] MEDS: NICOTINE POLACRILEX 4 MG GUM BUC PRN ×2 (15:50→20:00)
[2023-08-05] MEDS: COLLOIDAL OATMEAL 1 BAR EACH TP PRN (20:00)
[2023-08-05] MEDS: PRAZOSIN HCL 1 MG CAPSULE PO SCH (21:07)
[2023-08-05] MEDS: THIAMINE HCL 100 MG TABLET (FP) PO SCH (21:07)
[2023-08-05] MEDS: SUVOREXANT 15 MG TABLET PO PRN (21:07)
[2023-08-05] MEDS: QUEtiapine FUMARATE 200 MG TABLET PO SCH (21:07)
[2023-08-06] MEDS: PRENATAL VITAMINS W/ FOLIC ACID TABLET (FP) PO SCH (09:08)
[2023-08-06] MEDS: busPIRone HCL 5 MG TABLET PO SCH ×2 (09:09→21:16)
[2023-08-06] MEDS: NICOTINE 21 MG/24 HOURS TOPICAL PATCH TD SCH (09:09)
[2023-08-06] MEDS: QUEtiapine FUMARATE 100 MG TABLET (FP) PO SCH (09:09)
[2023-08-06] MEDS: NICOTINE POLACRILEX 4 MG GUM BUC PRN ×3 (09:10→20:10)
[2023-08-06] MEDS: QUEtiapine FUMARATE 200 MG TABLET PO SCH (21:16)
[2023-08-06] MEDS: PRAZOSIN HCL 1 MG CAPSULE PO SCH (21:16)
[2023-08-06] MEDS: THIAMINE HCL 100 MG TABLET (FP) PO SCH (21:16)
[2023-08-06] MEDS: SUVOREXANT 15 MG TABLET PO PRN (21:17)
[2023-08-07] MEDS: busPIRone HCL 5 MG TABLET PO SCH ×2 (10:03→21:04)
[2023-08-07] MEDS: QUEtiapine FUMARATE 100 MG TABLET (FP) PO SCH (10:03)
[2023-08-07] MEDS: NICOTINE POLACRILEX 4 MG GUM BUC PRN ×2 (10:04→19:50)
[2023-08-07] MEDS: NICOTINE 21 MG/24 HOURS TOPICAL PATCH TD SCH (10:04)
[2023-08-07] MEDS: PRENATAL VITAMINS W/ FOLIC ACID TABLET (FP) PO SCH (10:04)
[2023-08-07] MEDS: PRAZOSIN HCL 1 MG CAPSULE PO SCH (21:03)
[2023-08-07] MEDS: QUEtiapine FUMARATE 200 MG TABLET PO SCH (21:04)
[2023-08-07] MEDS: THIAMINE HCL 100 MG TABLET (FP) PO SCH (21:04)
[2023-08-07] MEDS: hydrOXYzine PAMOATE 25 MG CAPSULE (FP) PO PRN (21:05)
[2023-08-07] MEDS: SUVOREXANT 15 MG TABLET PO PRN (21:05)
[2023-08-08] MEDS: QUEtiapine FUMARATE 100 MG TABLET (FP) PO SCH (09:30)
[2023-08-08] MEDS: busPIRone HCL 5 MG TABLET PO SCH ×2 (09:31→21:11)
[2023-08-08] MEDS: NICOTINE 21 MG/24 HOURS TOPICAL PATCH TD SCH (09:31)
[2023-08-08] MEDS: PRENATAL VITAMINS W/ FOLIC ACID TABLET (FP) PO SCH (09:32)
[2023-08-08] MEDS: NICOTINE POLACRILEX 4 MG GUM BUC PRN ×3 (09:32→21:13)
[2023-08-08] MEDS: THIAMINE HCL 100 MG TABLET (FP) PO SCH (21:11)
[2023-08-08] MEDS: PRAZOSIN HCL 1 MG CAPSULE PO SCH (21:12)
[2023-08-08] MEDS: QUEtiapine FUMARATE 200 MG TABLET PO SCH (21:12)
[2023-08-08] MEDS: SUVOREXANT 15 MG TABLET PO PRN (21:12)
[2023-08-08] MEDS: hydrOXYzine PAMOATE 25 MG CAPSULE (FP) PO PRN (21:13)
[2023-08-09] MEDS: NICOTINE 21 MG/24 HOURS TOPICAL PATCH TD SCH (10:16)
[2023-08-09] MEDS: busPIRone HCL 5 MG TABLET PO SCH ×2 (10:16→21:10)
[2023-08-09] MEDS: QUEtiapine FUMARATE 100 MG TABLET (FP) PO SCH (10:16)
[2023-08-09] MEDS: NICOTINE POLACRILEX 4 MG GUM BUC PRN ×3 (10:16→21:11)
[2023-08-09] MEDS: PRENATAL VITAMINS W/ FOLIC ACID TABLET (FP) PO SCH (10:16)
[2023-08-09] MEDS: QUEtiapine FUMARATE 200 MG TABLET PO SCH (21:10)
[2023-08-09] MEDS: THIAMINE HCL 100 MG TABLET (FP) PO SCH (21:10)
[2023-08-09] MEDS: PRAZOSIN HCL 1 MG CAPSULE PO SCH (21:10)
[2023-08-09] MEDS: SUVOREXANT 15 MG TABLET PO PRN (21:10)
[2023-08-10] MEDS: PRENATAL VITAMINS W/ FOLIC ACID TABLET (FP) PO SCH (10:32)
[2023-08-10] MEDS: QUEtiapine FUMARATE 100 MG TABLET (FP) PO SCH (10:32)
[2023-08-10] MEDS: NICOTINE 21 MG/24 HOURS TOPICAL PATCH TD SCH (10:33)
[2023-08-10] MEDS: busPIRone HCL 5 MG TABLET PO SCH ×2 (10:33→21:21)
[2023-08-10] MEDS: NICOTINE POLACRILEX 4 MG GUM BUC PRN ×3 (10:34→21:22)
[2023-08-10] MEDS: COLLOIDAL OATMEAL 1 BAR EACH TP PRN (14:39)
[2023-08-10] MEDS: HYDROCORTISONE 0.5% TOPICAL CREAM 30 GM TUBE TP PRN (14:40)
[2023-08-10] MEDS: THIAMINE HCL 100 MG TABLET (FP) PO SCH (21:21)
[2023-08-10] MEDS: QUEtiapine FUMARATE 200 MG TABLET PO SCH (21:21)
[2023-08-10] MEDS: PRAZOSIN HCL 1 MG CAPSULE PO SCH (21:21)
[2023-08-10] MEDS: SUVOREXANT 15 MG TABLET PO PRN (21:21)
[2023-08-11] MEDS: QUEtiapine FUMARATE 100 MG TABLET (FP) PO SCH (09:59)
[2023-08-11] MEDS: PRENATAL VITAMINS W/ FOLIC ACID TABLET (FP) PO SCH (09:59)
[2023-08-11] MEDS: busPIRone HCL 5 MG TABLET PO SCH ×2 (09:59→21:06)
[2023-08-11] MEDS: NICOTINE 21 MG/24 HOURS TOPICAL PATCH TD SCH (09:59)
[2023-08-11] MEDS: NICOTINE POLACRILEX 4 MG GUM BUC PRN ×3 (13:06→20:39)
[2023-08-11] MEDS: THIAMINE HCL 100 MG TABLET (FP) PO SCH (21:06)
[2023-08-11] MEDS: SUVOREXANT 15 MG TABLET PO PRN (21:06)
[2023-08-11] MEDS: PRAZOSIN HCL 1 MG CAPSULE PO SCH (21:06)
[2023-08-11] MEDS: QUEtiapine FUMARATE 200 MG TABLET PO SCH (21:06)
[2023-08-12] MEDS: QUEtiapine FUMARATE 100 MG TABLET (FP) PO SCH (09:53)
[2023-08-12] MEDS: NICOTINE 21 MG/24 HOURS TOPICAL PATCH TD SCH (09:54)
[2023-08-12] MEDS: PRENATAL VITAMINS W/ FOLIC ACID TABLET (FP) PO SCH (09:54)
[2023-08-12] MEDS: busPIRone HCL 5 MG TABLET PO SCH ×2 (09:54→21:26)
[2023-08-12] MEDS: NICOTINE POLACRILEX 4 MG GUM BUC PRN ×2 (09:55→21:28)
[2023-08-12] MEDS: HYDROCORTISONE 0.5% TOPICAL CREAM 30 GM TUBE TP PRN (10:54)
[2023-08-12] MEDS: THIAMINE HCL 100 MG TABLET (FP) PO SCH (21:26)
[2023-08-12] MEDS: PRAZOSIN HCL 1 MG CAPSULE PO SCH (21:26)
[2023-08-12] MEDS: QUEtiapine FUMARATE 200 MG TABLET PO SCH (21:26)
[2023-08-12] MEDS: hydrOXYzine PAMOATE 25 MG CAPSULE (FP) PO PRN (21:27)
[2023-08-12] MEDS: SUVOREXANT 15 MG TABLET PO PRN (21:28)
[2023-08-13] MEDS: PRENATAL VITAMINS W/ FOLIC ACID TABLET (FP) PO SCH (11:04)
[2023-08-13] MEDS: busPIRone HCL 5 MG TABLET PO SCH ×2 (11:04→21:20)
[2023-08-13] MEDS: QUEtiapine FUMARATE 100 MG TABLET (FP) PO SCH (11:04)
[2023-08-13] MEDS: NICOTINE 21 MG/24 HOURS TOPICAL PATCH TD SCH (11:06)
[2023-08-13] MEDS: NICOTINE POLACRILEX 4 MG GUM BUC PRN ×3 (11:07→21:21)
[2023-08-13] MEDS: PRAZOSIN HCL 1 MG CAPSULE PO SCH (21:20)
[2023-08-13] MEDS: QUEtiapine FUMARATE 200 MG TABLET PO SCH (21:20)
[2023-08-13] MEDS: THIAMINE HCL 100 MG TABLET (FP) PO SCH (21:20)
[2023-08-13] MEDS: SUVOREXANT 15 MG TABLET PO PRN (21:20)
[2023-08-13] MEDS: hydrOXYzine PAMOATE 25 MG CAPSULE (FP) PO PRN (21:20)
[2023-08-14] MEDS: busPIRone HCL 5 MG TABLET PO SCH ×2 (09:50→21:19)
[2023-08-14] MEDS: QUEtiapine FUMARATE 100 MG TABLET (FP) PO SCH (09:51)
[2023-08-14] MEDS: hydrOXYzine PAMOATE 25 MG CAPSULE (FP) PO PRN (09:51)
[2023-08-14] MEDS: NICOTINE 21 MG/24 HOURS TOPICAL PATCH TD SCH (09:51)
[2023-08-14] MEDS: PRENATAL VITAMINS W/ FOLIC ACID TABLET (FP) PO SCH (09:52)
[2023-08-14] MEDS: COLLOIDAL OATMEAL 1 BAR EACH TP PRN (11:04)
[2023-08-14] MEDS: NICOTINE POLACRILEX 4 MG GUM BUC PRN ×2 (16:25→21:20)
[2023-08-14] MEDS: QUEtiapine FUMARATE 200 MG TABLET PO SCH (21:19)
[2023-08-14] MEDS: PRAZOSIN HCL 1 MG CAPSULE PO SCH (21:19)
[2023-08-14] MEDS: THIAMINE HCL 100 MG TABLET (FP) PO SCH (21:19)
[2023-08-14] MEDS: SUVOREXANT 15 MG TABLET PO PRN (21:20)
[2023-08-14] MEDS ORDERED: SUVOREXANT 15 MG TABLET PO PRN (22:00)
[2023-08-15 07:10] VITALS: TEMP 97.7
[2023-08-15] MEDS ORDERED: QUEtiapine FUMARATE 50 MG TABLET ONE (08:41)
[2023-08-15] MEDS: busPIRone HCL 5 MG TABLET PO SCH ×2 (10:02→21:02)
[2023-08-15] MEDS: NICOTINE 21 MG/24 HOURS TOPICAL PATCH TD SCH (10:03)
[2023-08-15] MEDS: QUEtiapine FUMARATE 100 MG TABLET (FP) PO SCH (10:03)
[2023-08-15] MEDS: PRENATAL VITAMINS W/ FOLIC ACID TABLET (FP) PO SCH (10:03)
[2023-08-15] MEDS: NICOTINE POLACRILEX 4 MG GUM BUC PRN ×4 (10:04→20:39)
[2023-08-15] MEDS: PRAZOSIN HCL 1 MG CAPSULE PO SCH (21:02)
[2023-08-15] MEDS: QUEtiapine FUMARATE 200 MG TABLET PO SCH (21:02)
[2023-08-15] MEDS: THIAMINE HCL 100 MG TABLET (FP) PO SCH (21:03)
[2023-08-16 06:27] VITALS: BP 117/72; PULSE 78; RESP 17
[2023-08-16] MEDS: QUEtiapine FUMARATE 100 MG TABLET (FP) PO SCH (09:12)
[2023-08-16] MEDS: NICOTINE 21 MG/24 HOURS TOPICAL PATCH TD SCH (09:12)
[2023-08-16] MEDS: busPIRone HCL 5 MG TABLET PO SCH (09:12)
[2023-08-16] MEDS: PRENATAL VITAMINS W/ FOLIC ACID TABLET (FP) PO SCH (09:12)
[2023-08-16] MEDS: hydrOXYzine PAMOATE 25 MG CAPSULE (FP) PO PRN (09:13)
[2023-08-16] MEDS: NICOTINE POLACRILEX 4 MG GUM BUC PRN (09:13)
== END 2023-08-16 10:33 | disposition home or self-care (01) | DRG 772 ==
LOC: YASAS 16:46 → Y5N 22:44 → Y3W 23:08
PROVIDERS: ADMIT Allergy & Immunology; ATTEND Psychiatry & Neurology Pain Medicine
PROC: HZ42ZZZ Group Counseling for Substance Abuse Treatment, Cognitive-Behavioral (ICD-10-PCS; principal; 2023-07-20)
DX: F10.20 Alcohol dependence, uncomplicated (principal); F12.20 Cannabis dependence, uncomplicated; F17.210 Nicotine dependence, cigarettes, uncomplicated; F19.282 Other psychoactive substance dependence with psychoactive substance-induced sleep disorder; F19.280 Other psychoactive substance dependence with psychoactive substance-induced anxiety disorder; F39 Unspecified mood [affective] disorder; F43.10 Post-traumatic stress disorder, unspecified; R21 Rash and other nonspecific skin eruption; Z88.0 Allergy status to penicillin
CPT/HCPCS: 36415; 71045-TC-FY; 80053; 80307; 81003; 85027; 86780; 87635; 87811

== ENCOUNTER 2024-09-02 19:41 | Inpatient (IN) | payer OTHER ==
[2024-09-02 19:57] VITALS: BMI 27.3
[2024-09-02] MEDS ORDERED: guaiFENesin 600 MG TABLET.ER (FP) PO PRN (20:20)
[2024-09-02] MEDS ORDERED: BENZOCAINE/MENTHOL (CHLORASEPTIC ) LOZENGE MM PRN (20:20)
[2024-09-02] MEDS ORDERED: MAGNESIUM HYDROX 2400MG/30ML ORAL SUSPENSION 30 ML CUP PO PRN (20:20)
[2024-09-02] MEDS ORDERED: LOPERAMIDE HCL 2 MG CAPSULE PO PRN (20:20)
[2024-09-02] MEDS ORDERED: MAG HYDROX/AL HYDROX/SIMETH 30 ML UNIT-DOSE CUP PO PRN (20:20)
[2024-09-02] MEDS ORDERED: POLYETHYLENE GLYCOL (HEALTHYLAX) 3350 17 GM PACKET PO PRN (20:20)
[2024-09-02] MEDS ORDERED: DICYCLOMINE HCL 10 MG CAPSULE PO PRN (20:20)
[2024-09-02] MEDS ORDERED: ONDANSETRON *ODT* 4 MG TABLET SL PRN (20:20)
[2024-09-02] MEDS ORDERED: ACETAMINOPHEN 325 MG TABLET (FP) PO PRN (20:20)
[2024-09-02] MEDS ORDERED: BISMUTH SUBSALICYLATE 524 MG/30 ML PO PRN (20:20)
[2024-09-02] MEDS ORDERED: BENZONATATE 200 MG CAPSULE PO PRN (20:20)
[2024-09-02] MEDS ORDERED: IBUPROFEN 400 MG TABLET (FP) PO PRN (20:20)
[2024-09-02] MEDS ORDERED: NALOXONE (NARCAN) HCL 4 MG/0.1 ML SPRAY NS PRN (20:20)
[2024-09-02] MEDS: THIAMINE 100 MG TABLET PO SCH (21:49)
[2024-09-02] MEDS: MELATONIN 5 MG TABLETS PO SCH (21:49)
[2024-09-02] MEDS: hydrOXYzine PAMOATE 25 MG CAPSULE (FP) PO PRN (21:53)
[2024-09-03] MEDS: PRENATAL VITAMINS W/ FOLIC ACID TABLET (FP) PO SCH (09:43)
[2024-09-03] MEDS: METHOCARBAMOL 500 MG TABLET PO PRN (09:44)
[2024-09-03] MEDS: NICOTINE 21 MG/24 HOURS TOPICAL PATCH TD SCH (09:45)
[2024-09-03] MEDS: NICOTINE POLACRILEX 4 MG GUM BUC PRN (09:47)
[2024-09-03] MEDS: IBUPROFEN 600 MG TABLET (FP) PO PRN (09:50)
[2024-09-03] MEDS: busPIRone HCL 10 MG TABLET (FP) PO SCH (09:53)
[2024-09-03] MEDS: GABAPENTIN 300 MG CAPSULE PO SCH (13:10)
[2024-09-03 13:57] LABS: HEMATOCRIT 44.2 % (35.4-49); HEMOGLOBIN 14.8 GM/dL (11.7-16.9); MCH 29.3 pg (25.7-33.7); MCHC 33.6 g/dl (32.0-35.9); MEAN CELL VOLUME 87.3 fl (80-96); MEAN PLT VOLUME 10.1 fl (7.5-11.1); PLATELET COUNT 215 10^3/uL (134-434); RBC 5.06 M/mm3 (4.00-5.60); RDW 13.8 % (11.9-15.9); WHITE BLOOD COUNT 7.9 K/mm3 (4.0-10.0)
[2024-09-03 14:02] LABS: CHLORIDE 102 mmol/L (98-107); POTASSIUM 4.1 mmol/L (3.5-5.1); SODIUM 139 mmol/L (136-145)
[2024-09-03 14:09] LABS: ALBUMIN 3.8 g/dl (3.4-5.0); ANION GAP 4 mmol/L (4-13); BLOOD UREA NITROGEN 12.3 mg/dL (7-18); CALCIUM 9.2 mg/dL (8.5-10.1); CO2 33 mmol/L (21-32); GLUCOSE,RANDOM 98 mg/dL (74-106)
[2024-09-03 14:12] LABS: SGPT/ALT 32 U/L (13-61)
[2024-09-03 14:13] LABS: SGOT/AST 15 U/L (15-37)
[2024-09-03 14:14] LABS: BILIRUBIN,TOTAL 0.8 mg/dL (0.2-1); TOT PROT 6.5 g/dl (6.4-8.2)
[2024-09-03 14:15] LABS: ALK PHOS 47 U/L (45-117)
[2024-09-03 14:59] LABS: HIV INTERPRETATION NEGATIVE (NEGATIVE)
[2024-09-03 17:08] VITALS: RESP 16
[2024-09-03] MEDS: PRAZOSIN HCL 1 MG CAPSULE PO SCH (21:35)
[2024-09-03] MEDS: QUEtiapine FUMARATE 100 MG TABLET (FP) PO SCH (21:35)
[2024-09-04 08:44] VITALS: BP 109/66; PULSE 75; TEMP 97.6
[2024-09-04] MEDS: NALOXONE (NYS OPIOID OVERDOSE PROGRAM) 4 MG/0.1 ML SPRAY NS SCH (11:38)
== END 2024-09-04 11:10 | disposition other institution (70) | DRG 774 ==
LOC: YASAS 19:41 → Y6N 20:33
PROVIDERS: ADMIT Allergy & Immunology; ATTEND Surgery
PROC: HZ2ZZZZ Detoxification Services for Substance Abuse Treatment (ICD-10-PCS; principal; 2024-09-02)
DX: F10.230 Alcohol dependence with withdrawal, uncomplicated (principal); F14.20 Cocaine dependence, uncomplicated; F12.20 Cannabis dependence, uncomplicated; F17.210 Nicotine dependence, cigarettes, uncomplicated; F19.280 Other psychoactive substance dependence with psychoactive substance-induced anxiety disorder; F19.282 Other psychoactive substance dependence with psychoactive substance-induced sleep disorder; F43.10 Post-traumatic stress disorder, unspecified; F31.9 Bipolar disorder, unspecified; F41.9 Anxiety disorder, unspecified; G62.9 Polyneuropathy, unspecified; Z56.0 Unemployment, unspecified; Z59.00 Homelessness unspecified; Z88.0 Allergy status to penicillin
CPT/HCPCS: 36415; 71046-TC-FY; 80053; 80307; 82962; 85027; 86780; 87389; 93005; 93010

== ENCOUNTER 2024-09-04 11:20 | Inpatient (IN) | payer OTHER ==
[2024-09-04] MEDS ORDERED: NALOXONE HCL 0.4 MG/ML VIAL IVPUSH PRN (16:00)
[2024-09-04] MEDS ORDERED: LOPERAMIDE HCL 2 MG CAPSULE PO PRN (16:00)
[2024-09-04] MEDS ORDERED: NALOXONE (NARCAN) HCL 4 MG/0.1 ML SPRAY NS PRN (16:00)
[2024-09-04] MEDS ORDERED: POLYETHYLENE GLYCOL (HEALTHYLAX) 3350 17 GM PACKET PO PRN (16:00)
[2024-09-04] MEDS ORDERED: MAG HYDROX/AL HYDROX/SIMETH 30 ML UNIT-DOSE CUP PO PRN (16:00)
[2024-09-04] MEDS ORDERED: guaiFENesin 600 MG TABLET.ER (FP) PO PRN (16:00)
[2024-09-04] MEDS ORDERED: BENZONATATE 200 MG CAPSULE PO PRN (16:00)
[2024-09-04] MEDS ORDERED: MAGNESIUM HYDROX 2400MG/30ML ORAL SUSPENSION 30 ML CUP PO PRN (16:00)
[2024-09-04] MEDS ORDERED: IBUPROFEN 400 MG TABLET (FP) PO PRN (16:00)
[2024-09-04] MEDS: THIAMINE 100 MG TABLET PO SCH (21:34)
[2024-09-04] MEDS: GABAPENTIN 300 MG CAPSULE PO SCH (21:34)
[2024-09-04] MEDS: QUEtiapine FUMARATE 100 MG TABLET (FP) PO SCH (21:34)
[2024-09-04] MEDS: busPIRone HCL 5 MG TABLET PO SCH (21:34)
[2024-09-04] MEDS: MELATONIN 5 MG TABLETS PO SCH (21:35)
[2024-09-04] MEDS: PRAZOSIN HCL 1 MG CAPSULE PO SCH (21:36)
[2024-09-04] MEDS: ACETAMINOPHEN 325 MG TABLET (FP) PO PRN (21:37)
[2024-09-05] MEDS: NICOTINE POLACRILEX 4 MG GUM BUC PRN (08:59)
[2024-09-05] MEDS ORDERED: NICOTINE 14 MG/24 HOURS TOPICAL PATCH TD SCH (10:00)
[2024-09-05] MEDS: NICOTINE 14 MG/24 HOURS TOPICAL PATCH TD SCH (10:21)
[2024-09-05] MEDS: PRENATAL VITAMINS W/ FOLIC ACID TABLET (FP) PO SCH (10:21)
[2024-09-05] MEDS: METHOCARBAMOL 500 MG TABLET PO PRN (11:30)
[2024-09-05] MEDS: hydrOXYzine PAMOATE 25 MG CAPSULE (FP) PO PRN (22:52)
[2024-09-06] MEDS: IBUPROFEN 600 MG TABLET (FP) PO PRN (09:10)
[2024-09-07] MEDS ORDERED: NICOTINE 21 MG/24 HOURS TOPICAL PATCH TD SCH (11:01)
[2024-09-07] MEDS: NICOTINE 21 MG/24 HOURS TOPICAL PATCH TD SCH (11:15)
[2024-09-08] MEDS: NICOTINE POLACRILEX 4 MG LOZENGE BC PRN (10:03)
[2024-09-08] MEDS: PRAZOSIN HCL 1 MG CAPSULE PO SCH (21:52)
[2024-09-10] MEDS: busPIRone HCL 10 MG TABLET (FP) PO SCH (11:05)
[2024-09-11] MEDS: BENZOCAINE/MENTHOL (CHLORASEPTIC ) LOZENGE MM PRN (21:36)
[2024-09-27] MEDS: BENZOCAINE 20 % GEL TUBE MM PRN (18:09)
[2024-09-30] MEDS ORDERED: QUEtiapine FUMARATE 50 MG TABLET ONE (20:34)
[2024-10-02 20:19] VITALS: RESP 16
[2024-10-03] MEDS: NALOXONE (NYS OPIOID OVERDOSE PROGRAM) 4 MG/0.1 ML SPRAY NS SCH (06:47)
[2024-10-03 06:48] VITALS: BP 129/68; PULSE 78; TEMP 97.3
== END 2024-10-03 07:30 | disposition home or self-care (01) | DRG 772 ==
LOC: YASAS 11:20 → Y3E 11:25 → Y3W 09-27 15:17
PROVIDERS: ADMIT Psychiatry & Neurology Pain Medicine; ATTEND Psychiatry & Neurology Pain Medicine
PROC: HZ42ZZZ Group Counseling for Substance Abuse Treatment, Cognitive-Behavioral (ICD-10-PCS; principal; 2024-09-04)
DX: F10.20 Alcohol dependence, uncomplicated (principal); F14.20 Cocaine dependence, uncomplicated; F17.210 Nicotine dependence, cigarettes, uncomplicated; F19.280 Other psychoactive substance dependence with psychoactive substance-induced anxiety disorder; F19.282 Other psychoactive substance dependence with psychoactive substance-induced sleep disorder; F43.10 Post-traumatic stress disorder, unspecified; F32.A Depression, unspecified; F41.9 Anxiety disorder, unspecified
CPT/HCPCS: 36415; 80305; 82140; 86803

== ENCOUNTER 2025-03-29 07:32 | Emergency (ER) | payer OTHER ==
[2025-03-29 07:45] VITALS: RESP 18; BMI 27.3
[2025-03-29] MEDS: SODIUM CHLORIDE 0.9% 500 ML INFUS.BAG IV ONE (09:35)
[2025-03-29] MEDS: ACETAMINOPHEN 1000 MG/100 ML BAG IVPB ONE (09:35)
[2025-03-29] MEDS ORDERED: ACETAMINOPHEN 325 MG TABLET (FP) ONE (09:55)
[2025-03-29] MEDS: ACETAMINOPHEN 500 MG TABLET (FP) PO ONE (09:58)
[2025-03-29 11:25] VITALS: BP 132/75; PULSE 92; TEMP 98
== END 2025-03-29 10:30 | disposition home or self-care (01) ==
LOC: JER 07:32
DX: F10.20 Alcohol dependence, uncomplicated (principal); F14.90 Cocaine use, unspecified, uncomplicated; M79.10 Myalgia, unspecified site; R53.1 Weakness; S90.821A Blister (nonthermal), right foot, initial encounter; S90.822A Blister (nonthermal), left foot, initial encounter; E86.0 Dehydration; Z59.00 Homelessness unspecified; X58.XXXA Exposure to other specified factors, initial encounter
CPT/HCPCS: 93005; 93010; 99283-25